=== PATIENT | male | born 1940 | race Hispanic/Latino ===

== ENCOUNTER 2019-10-28 02:40 | Emergency (ER) | payer OTHER ==
[2019-10-28] MEDS ORDERED: KETOROLAC TROMETHAMINE 30MG/ML ONE (03:10)
[2019-10-28] MEDS ORDERED: ORPHENADRINE CITRATE 30 MG/ML ML ONE (03:10)
[2019-10-28] MEDS ORDERED: ONDANSETRON ODT 4 MG TAB ONE (04:28)
[2019-10-28] MEDS ORDERED: HYDROCODONE/ACETAMINOPHEN 5/325 MG TAB ONE (04:29)
== END 2019-10-28 04:54 | disposition home or self-care (01) ==
LOC: EDH 02:40
DX: S16.1XXA Strain of muscle, fascia and tendon at neck level, initial encounter (principal); S09.90XA Unspecified injury of head, initial encounter; M62.838 Other muscle spasm; I10 Essential (primary) hypertension; X58.XXXA Exposure to other specified factors, initial encounter; Y93.89 Activity, other specified; Y92.89 Other specified places as the place of occurrence of the external cause; Y99.8 Other external cause status
CPT/HCPCS: 70450; 72125; 96372 ×2; 99285; J1885; J2360

== ENCOUNTER 2019-11-02 04:58 | Emergency (ER) | payer OTHER ==
[2019-11-02] MEDS ORDERED: CLINDAMYCIN 900 MG/D5% WATER 50 ML IV ONE (06:10)
[2019-11-02] MEDS ORDERED: ONDANSETRON HCL 4 MG/2 ML VIAL ONE (06:11)
[2019-11-02] MEDS ORDERED: LIDOCAINE 5% TOPICAL PATCH TP ONE (06:11)
[2019-11-02] MEDS ORDERED: HYDROCODONE/ACETAMINOPHEN 5/325 MG TAB ONE (06:11)
== END 2019-11-02 07:36 | disposition home or self-care (01) ==
LOC: EDH 04:58
DX: S00.01XA Abrasion of scalp, initial encounter (principal); L03.811 Cellulitis of head [any part, except face]; M62.838 Other muscle spasm; R51 Headache; I10 Essential (primary) hypertension; W20.8XXA Other cause of strike by thrown, projected or falling object, initial encounter; Y93.89 Activity, other specified; Y92.89 Other specified places as the place of occurrence of the external cause; Y99.8 Other external cause status
CPT/HCPCS: 70450; 96374; 96375; 99284; J2405; J3490

== ENCOUNTER 2021-02-28 17:44 | Emergency (ER) | payer OTHER ==
[~2021-02-28] VITALS: Ht 177.8 cm; Wt 93.0 kg
[2021-02-28] MEDS ORDERED: TETANUS/DIPHTHERIA TOXOID [ADULT] 0.5 ML VIAL IM ONE ×2 (18:00→18:36)
[2021-02-28] MEDS ORDERED: AMOX/CLAV 875/125MG TAB PO ONE ×2 (18:00→18:35)
[2021-02-28] MEDS ORDERED: AMOX-429 PO (19:13)
[2021-02-28 19:46] VITALS: BP 124/70
== END 2021-02-28 19:44 | disposition home or self-care (01) ==
LOC: EDH 17:44
DX: S61.451A Open bite of right hand, initial encounter (principal); S51.852A Open bite of left forearm, initial encounter; I10 Essential (primary) hypertension; W54.0XXA Bitten by dog, initial encounter; Y93.K1 Activity, walking an animal; Y92.89 Other specified places as the place of occurrence of the external cause; Y99.8 Other external cause status
CPT/HCPCS: 73130; 90471; 90714